=== PATIENT | male | born 1970 | race Caucasian/White ===

== ENCOUNTER 2019-07-25 12:04 | Day surgery (SDC) | payer BC ==
[~2019-07-25 12:04] MED LIST: Lidocaine 2% 5 ML SDV INJECT ONE; Ropivacaine 0.5% 5 MG/ML 30 ML SDV INJECT ONE
[2019-07-25] MEDS ORDERED: Ropivacaine 0.5% 5 MG/ML 30 ML SDV INJECT ONE (13:00)
[2019-07-25] MEDS ORDERED: Betamethasone Acetate/Betamethasone Sod Phosphate 30 MG/5 ML MDV EPIDUR ONE (13:00)
[2019-07-25] MEDS ORDERED: Iopamidol 200-M 10 ML vial ITHECAL ONE (13:00)
[2019-07-25] MEDS ORDERED: Lidocaine 2% 5 ML SDV INJECT ONE (13:00)
--- NOTE | 2019-07-25 20:12 | OR ---
SURGEON: Anastasiia Zurita D.O. DATE OF PROCEDURE: 07/25/2019 PRIMARY SURGEON: Anastasiia Zurita D.O. WIRE WINDER: OR staff present: 1. Arcelia Hamm RN. 2. Dagmar Maldonado RN. 3. Parth Mcgrath RN. 4. Susie Rizo RT. PREOPERATIVE DIAGNOSES: 1. Lumbar degenerative disk disease. 2. Lumbar disk protrusion at L3-4. 3. Lumbar radiculopathy. POSTOPERATIVE DIAGNOSES: 1. Lumbar degenerative disk disease. 2. Lumbar disk protrusion at L3-4. 3. Lumbar radiculopathy. PROCEDURE PERFORMED: 1. Left transforaminal epidural steroid injection at L3. 2. Fluoroscopic guidance for needle placement. 3. Local with oral Valium for sedation. SCREENING QUESTIONS: The patient answered "no" to all of the following questions: 1. Are you allergic to iodine, Betadine or latex? 2. Do you have a bleeding disorder? 3. Do you have any joint replacements, heart valve replacements, or a pacemaker? 4. Are you allergic to anti-inflammatories or blood thinners? 5. Do you have any current local or systemic infections? DESCRIPTION OF PROCEDURE: The patient had the procedure thoroughly explained including risks, benefits and alternatives. Consent was signed in my clinic indicating understanding and willingness to proceed. The patient presented to [facility] [place] where the patient was escorted to the dressing room to disrobe and change into a hospital gown. Preoperative vital signs were taken and stable. The patient reported that Valium was taken prior to the procedure. The patient was brought to the procedure room and placed in the prone position on the table. A pillow was placed under the abdomen in order to flatten the lumbar lordosis. The back was prepped with ChloraPrep and sterilely draped. All personnel in the operating room were dressed in appropriate attire including surgical scrubs, head and shoe covers. This was to ensure sterility while in the treatment room. During the time fluoroscopy was in use, all personnel in the operating room wore lead guzman with thyroid collars. Sterile technique was used during the procedure. The fluoroscope was placed for the L3 transforaminal epidural steroid injection. There was no sign of infection at the skin site for needle insertion. The skin was anesthetized with 2% lidocaine with a 27 gauge 1-1/2 inch needle. Then a 22 gauge 3-1/2 inch spinal needle, advanced to the L3 foramen . Under direct fluoroscopic guidance needle position was verified in three views; AP, oblique and lateral, with 0.2 cubic centimeters increments of Isovue-200 dye. No intravascular flow pattern was observed under live fluoroscopy. Then 12 milligrams of Celestone was slowly injected after negative aspiration of heme, cerebrospinal fluid and no paresthesias were noted. The needle was cleared prior to removal from the skin. No adverse reactions were noted. The patient was brought to the recovery room awake and in good condition by my staff. The patient was monitored and discharge instructions were given after a brief stay in the recovery area. Both oral and written discharge and follow up instructions were given. The patient will follow up in the clinic in 3-4 weeks post procedure to evaluate the efficacy. The patient verbalized understanding including understanding of those signs and symptoms that would require emergency care and knows how to contact the office if there are any problems or questions in the meantime. PREOPERATIVE PAIN: 4+/10. POSTOPERATIVE PAIN: 1/10. FOLLOWUP: Follow up in the Pain Clinic in 3 weeks. HOGANDREW / JANAE /[id number] CORTNEY
== END 2019-07-25 14:10 | disposition home or self-care (01) ==
LOC: MW.SDS 12:04
PROVIDERS: ATTEND Anesthesiology
DX: M51.16 Intervertebral disc disorders with radiculopathy, lumbar region (principal)
CPT/HCPCS: 64483; J0702; 62323

== ENCOUNTER 2023-04-22 14:35 | Emergency (ER) | payer BC ==
[2023-04-22] MEDS ORDERED: methylPREDNISolone Sodium Succinate 125 MG/2 ML SDV IM ONE (15:32)
[2023-04-22] MEDS ORDERED: Amoxicillin/Clavulanate K 875-125 MG Tab PO ONE (15:32)
[2023-04-22] MEDS ORDERED: Diphtheria,Pertussis(Acell),Tetanus Vaccine 0.5 ML Syringe IM ONE (15:39)
== END 2023-04-22 16:25 | disposition home or self-care (01) ==
LOC: MW.ED 14:35
DX: R20.2 Paresthesia of skin (principal); L08.9 Local infection of the skin and subcutaneous tissue, unspecified; Z23 Encounter for immunization; Z79.899 Other long term (current) drug therapy
CPT/HCPCS: 90471; 90715; 96372; 99283; A9270; J2930

== ENCOUNTER 2023-10-07 14:14 | Emergency (ER) | payer BC | END 2023-10-07 15:05 | disposition home or self-care (01) | LOC: MW.ED 14:14 | DX: A69.20 Lyme disease, unspecified (principal); F17.210 Nicotine dependence, cigarettes, uncomplicated; Z79.899 Other long term (current) drug therapy; Z75.8 Other problems related to medical facilities and other health care | CPT/HCPCS: 99282; 99283 ==